=== PATIENT | female | born 1975 | race Two or more races ===

== ENCOUNTER 2024-09-19 21:57 | Emergency (ER) | payer OTHER ==
[~2024-09-19] VITALS: Ht 167.6 cm; Wt 79.1 kg
[2024-09-19] MEDS ORDERED: ACET500T58 PO (23:56)
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
[2024-09-20 00:09] VITALS: BP 108/61; PULSE 98; RESP 18; TEMP 98.1; O2SAT 95
== END 2024-09-20 00:12 | disposition home or self-care (01) ==
LOC: ER 21:57
DX: S39.012A Strain of muscle, fascia and tendon of lower back, initial encounter (principal); Z79.899 Other long term (current) drug therapy; Z90.49 Acquired absence of other specified parts of digestive tract; V43.52XA Car driver injured in collision with other type car in traffic accident, initial encounter; Y93.89 Activity, other specified; Y92.488 Other paved roadways as the place of occurrence of the external cause; Y99.8 Other external cause status